=== PATIENT | male | born 1950 | race Caucasian/White ===

== ENCOUNTER 2016-11-01 14:31 | Inpatient (IN) | payer MEDICARE, OTHER ==
[~2016-11-01] VITALS: Ht 177.8 cm; Wt 104.4 kg
[2016-11-01 15:31] LABS: Albumin 3.4 g/dL (3.4-5.0); BUN/Creatinine Ratio 30.7; Calcium 8.2 mg/dL (8.5-10.1)
[2016-11-01 15:39] LABS: Bilirubin, Total 0.7 mg/dL (0.2-1.0); Total Protein 6.5 g/dL (6.4-8.2)
[2016-11-01 15:40] LABS: Basophils # (auto) 0 uL; Basophils % (auto) 0.3 % (0.0-2.0); DEFINITIVE VIEW TRANSMISSION; Eosinophils # (auto) 0.1 uL; Hematocrit 42.4 % (41.0-53.0); Hemoglobin 14.1 g/dL (13.5-17.5); Lymphocytes # (auto) 1.4 uL; Lymphocytes % (auto) 16.2 % (10.0-50.0); Mean Corpuscular Hemoglobin 33.9 pg (28.0-32.0); Mean Corpuscular Hgb Conc. 33.4 g/dL (32.0-36.0); Mean Corpuscular Volume 101.7 fL (80.0-100.0); Mean Platelet Volume 8.2 fL (7.4-10.4); Monocytes # (auto) 0.8 uL; Monocytes % (auto) 9.3 % (0.0-12.0); Neutrophils # (auto) 6.6 uL; Neutrophils % (auto) 73.2 % (37.0-80.0); Platelet Count (auto) 225 10^3/uL (140-450); Red Cell Distribution Width 13.6 % (11.6-16.0)
[2016-11-01 15:58] LABS: Potassium 2.7 mmol/L (3.5-5.1)
[2016-11-01 17:01] LABS: B-Type Natriuretic Peptide 233.55 pg/mL (0-100); Temperature: 22.7 C (20.0-25.0)
[2016-11-01] MEDS ORDERED: DEXTROSE (50%) 50ML SYRG IV PRN (17:30)
[2016-11-01] MEDS ORDERED: POTASSIUM CHL 20 Meq TABLET PO ONE (17:30)
[2016-11-01] MEDS ORDERED: POTASSIUM CHL 20MEQ/100ML 100 ML IV ONE (17:30)
[2016-11-01] MEDS ORDERED: NITROGLYCERIN 0.4 MG SL TAB SL PRN (17:30)
[2016-11-01] MEDS ORDERED: PANTOPRAZOLE SODIUM 40 MG/10 ML VIAL IV ONE (17:30)
[2016-11-01] MEDS ORDERED: MORPHINE SULF INJ 2 MG/ML SYRINGE 1ML IV PRN (17:30)
[2016-11-01 17:34] LABS: Urine RBC None Seen /hpf (0 - 3)
[2016-11-01 17:58] LABS: Urine Bilirubin Negative (Negative); Urine Blood Negative /uL (Negative); Urine Color Yellow (Yellow); Urine Glucose TRACE mg/dL (Normal); Urine Ketone Negative (Negative); Urine Nitrite Negative (Negative); Urine Urobilinogen Normal (Negative)
[2016-11-01] MEDS: RIVAROXABAN 20 MG TAB PO SCH (18:11)
[2016-11-01] MEDS: ACCU-CHEK COMFORT CURVE STRIP VI SCH (22:00)
[2016-11-01] MEDS: ATORVASTATIN 20 MG TAB PO SCH (22:39)
[2016-11-01] MEDS: AMIODARONE HCL 200 MG TAB PO SCH (22:39)
[2016-11-01] MEDS: InsuLIN REG 1unit/0.01ml Soln (100units/ml) SC SCH (22:40)
[2016-11-01] MEDS: CARVEDILOL 3.125 MG TAB PO SCH (22:40)
[2016-11-01] MEDS: INSULIN DETEMIR(LEVEMIR) 1unit/0.01ml Soln (100units/ml) SC SCH (22:41)
[2016-11-02 05:58] LABS: Basophils # (auto) 0 uL; Basophils % (auto) 0.3 % (0.0-2.0); Eosinophils # (auto) 0.1 uL; Eosinophils % (auto) 1.4 % (0.0-7.0); Hematocrit 42.1 % (41.0-53.0); Hemoglobin 14.3 g/dL (13.5-17.5); Lymphocytes # (auto) 1.5 uL; Mean Corpuscular Hemoglobin 34.1 pg (28.0-32.0); Mean Corpuscular Hgb Conc. 33.9 g/dL (32.0-36.0); Mean Corpuscular Volume 100.7 fL (80.0-100.0); Mean Platelet Volume 7.9 fL (7.4-10.4); Monocytes # (auto) 0.7 uL; Monocytes % (auto) 10.5 % (0.0-12.0); Neutrophils % (auto) 63.8 % (37.0-80.0); Platelet Count (auto) 229 10^3/uL (140-450); Red Cell Distribution Width 14.4 % (11.6-16.0); White Blood Cell 6.3 10^3/uL (4.4-10.8)
[2016-11-02 06:10] LABS: BUN/Creatinine Ratio 29.2; Calcium 8.7 mg/dL (8.5-10.1)
[2016-11-02 06:18] LABS: Potassium 2.9 mmol/L (3.5-5.1)
[2016-11-02] MEDS ORDERED: POTASSIUM CHL 20 Meq TABLET PO ONE (06:30)
[2016-11-02] MEDS: InsuLIN REG 1unit/0.01ml Soln (100units/ml) SC SCH ×4 (06:43→22:29)
[2016-11-02] MEDS: ACCU-CHEK COMFORT CURVE STRIP VI SCH ×4 (06:51→22:30)
[2016-11-02 08:00] VITALS: BP 113/66
[2016-11-02 09:00] VITALS: BP 113/66
[2016-11-02] MEDS: INSULIN DETEMIR(LEVEMIR) 1unit/0.01ml Soln (100units/ml) SC SCH ×2 (10:00→22:29)
[2016-11-02] MEDS: AMIODARONE HCL 200 MG TAB PO SCH ×2 (10:16→22:12)
[2016-11-02] MEDS: LISINOPRIL 5 MG TAB PO SCH (10:16)
[2016-11-02] MEDS: CARVEDILOL 3.125 MG TAB PO SCH ×2 (10:18→22:11)
[2016-11-02] MEDS: PANTOPRAZOLE SODIUM 40 MG/10 ML VIAL IV SCH (10:29)
[2016-11-02] MEDS: FUROSEMIDE 40 MG TAB PO SCH (10:29)
[2016-11-02] MEDS: POTASSIUM CHL 20 Meq TABLET PO SCH (10:29)
[2016-11-02 13:00] VITALS: BP 124/70
[2016-11-02] MEDS ORDERED: POTASSIUM CHLORIDE 40 MEQ, LIDOCAINE 1% (LOCAL ANESTH.) 4 ML in SODIUM CHL 0.9% 250 ML IV ONE (13:15)
[2016-11-02] MEDS ORDERED: LISI-646 PO (13:55)
[2016-11-02] MEDS ORDERED: FURO20TA3 PO (13:55)
[2016-11-02] MEDS ORDERED: FAM20T PO (13:55)
[2016-11-02] MEDS ORDERED: CYAN10006 PO (13:55)
[2016-11-02] MEDS ORDERED: RIVA20TA PO (13:55)
[2016-11-02] MEDS ORDERED: HYDR-2651 PO (13:55)
[2016-11-02] MEDS ORDERED: METO2.5T11 PO (13:55)
[2016-11-02] MEDS ORDERED: ATOR40TA52 PO (13:55)
[2016-11-02] MEDS ORDERED: FURO40TA4 PO (13:55)
[2016-11-02] MEDS ORDERED: AMIO100T3 PO (13:55)
[2016-11-02] MEDS ORDERED: GLIP-115 PO (13:55)
[2016-11-02] MEDS ORDERED: INSU100I2 SC (13:55)
[2016-11-02] MEDS ORDERED: CARV3.1213 PO (13:55)
[2016-11-02] MEDS ORDERED: LEVEMIR SC (13:55)
[2016-11-02] MEDS ORDERED: CHOL20009 PO (13:55)
[2016-11-02 16:54] VITALS: BP 108/63
[2016-11-02] MEDS: RIVAROXABAN 20 MG TAB PO SCH (18:00)
[2016-11-02] MEDS: ATORVASTATIN 20 MG TAB PO SCH (22:11)
[2016-11-02 22:34] VITALS: BP 113/88
[2016-11-03 05:03] LABS: Basophils # (auto) 0 uL; Basophils % (auto) 0.3 % (0.0-2.0); DEFINITIVE VIEW TRANSMISSION; Eosinophils # (auto) 0.1 uL; Eosinophils % (auto) 1.7 % (0.0-7.0); Hematocrit 43.9 % (41.0-53.0); Hemoglobin 14.5 g/dL (13.5-17.5); Lymphocytes % (auto) 25.8 % (10.0-50.0); Mean Corpuscular Hemoglobin 33.6 pg (28.0-32.0); Mean Corpuscular Volume 101.8 fL (80.0-100.0); Monocytes # (auto) 0.7 uL; Neutrophils # (auto) 4.8 uL; Neutrophils % (auto) 63.2 % (37.0-80.0); Platelet Count (auto) 231 10^3/uL (140-450); Red Cell Distribution Width 14.5 % (11.6-16.0); White Blood Cell 7.6 10^3/uL (4.4-10.8)
[2016-11-03 05:16] LABS: INR 1.11 (0.9-1.15); Prothrombin Time 11.4 sec (9.37-12.3)
[2016-11-03 05:26] LABS: Albumin 3.2 g/dL (3.4-5.0); BUN/Creatinine Ratio 26.3; Calcium 8.6 mg/dL (8.5-10.1); Potassium 3.3 mmol/L (3.5-5.1)
[2016-11-03 05:30] VITALS: BP 125/81
[2016-11-03 05:36] LABS: Total Protein 6.6 g/dL (6.4-8.2)
[2016-11-03] MEDS: ACCU-CHEK COMFORT CURVE STRIP VI SCH ×4 (05:40→21:52)
[2016-11-03] MEDS: InsuLIN REG 1unit/0.01ml Soln (100units/ml) SC SCH ×4 (05:40→22:02)
[2016-11-03] MEDS ORDERED: LIDOCAINE 2%HCL (LOCAL ANESTH.) INJ 20ML MDV ONE (06:36)
[2016-11-03] MEDS ORDERED: IOHEXOL 350 MG/ML 100ML IJ ONE (06:37)
[2016-11-03] MEDS ORDERED: fentaNYL CITRATE 100 MCG/2 ML VL ONE (06:52)
[2016-11-03] MEDS ORDERED: ANGIOMAX 250 MG VIAL IV ONE (06:52)
[2016-11-03] MEDS ORDERED: MIDAZOLAM HCL 1MG/1ML-2 ML VIAL ONE (06:52)
[2016-11-03] MEDS ORDERED: EPTIFIBATIDE INJ (2MG/ML) 10ML VIAL IV ONE (06:53)
[2016-11-03] MEDS ORDERED: SODIUM CHL 0.9% 50 ML ONE (06:53)
[2016-11-03] MEDS ORDERED: CLOPIDOGREL 300 MG TAB ONE (07:47)
[2016-11-03 09:24] VITALS: BP 101/73
[2016-11-03] MEDS: FUROSEMIDE 40 MG TAB PO SCH (10:00)
[2016-11-03] MEDS: AMIODARONE HCL 200 MG TAB PO SCH ×2 (11:18→21:52)
[2016-11-03] MEDS: PANTOPRAZOLE SODIUM 40 MG/10 ML VIAL IV SCH (11:18)
[2016-11-03] MEDS: CARVEDILOL 3.125 MG TAB PO SCH ×2 (11:19→21:52)
[2016-11-03] MEDS: POTASSIUM CHL 20 Meq TABLET PO SCH (11:19)
[2016-11-03] MEDS: LISINOPRIL 5 MG TAB PO SCH (11:19)
[2016-11-03] MEDS: INSULIN DETEMIR(LEVEMIR) 1unit/0.01ml Soln (100units/ml) SC SCH ×2 (11:21→22:02)
[2016-11-03 13:38] VITALS: BP 121/80
[2016-11-03 16:36] VITALS: BP 118/73
[2016-11-03] MEDS: RIVAROXABAN 20 MG TAB PO SCH (18:00)
[2016-11-03] MEDS: ATORVASTATIN 20 MG TAB PO SCH (21:52)
[2016-11-03 22:00] VITALS: BP 108/63
[2016-11-04 05:00] VITALS: BP 112/69
[2016-11-04] MEDS: InsuLIN REG 1unit/0.01ml Soln (100units/ml) SC SCH ×4 (06:32→21:21)
[2016-11-04] MEDS: ACCU-CHEK COMFORT CURVE STRIP VI SCH ×4 (06:32→21:17)
[2016-11-04 09:00] VITALS: BP 126/82
[2016-11-04] MEDS: INSULIN DETEMIR(LEVEMIR) 1unit/0.01ml Soln (100units/ml) SC SCH ×2 (10:00→21:19)
[2016-11-04] MEDS: FUROSEMIDE 40 MG TAB PO SCH (10:30)
[2016-11-04] MEDS: PANTOPRAZOLE SODIUM 40 MG/10 ML VIAL IV SCH (10:30)
[2016-11-04] MEDS: POTASSIUM CHL 20 Meq TABLET PO SCH (10:30)
[2016-11-04] MEDS: LISINOPRIL 5 MG TAB PO SCH (10:31)
[2016-11-04] MEDS: AMIODARONE HCL 200 MG TAB PO SCH ×2 (10:31→21:20)
[2016-11-04] MEDS: CARVEDILOL 3.125 MG TAB PO SCH ×2 (10:31→21:21)
[2016-11-04] MEDS: CLOPIDOGREL BISULFATE 75 MG TAB PO SCH (10:31)
[2016-11-04 13:00] VITALS: BP 125/96
[2016-11-04 17:00] VITALS: BP 120/83
[2016-11-04] MEDS: RIVAROXABAN 20 MG TAB PO SCH (17:51)
[2016-11-04 21:05] VITALS: BP 123/82
[2016-11-04] MEDS: ATORVASTATIN 20 MG TAB PO SCH (21:20)
[2016-11-05 04:49] VITALS: BP 104/63
[2016-11-05] MEDS: ACCU-CHEK COMFORT CURVE STRIP VI SCH ×2 (06:33→11:30)
[2016-11-05] MEDS: InsuLIN REG 1unit/0.01ml Soln (100units/ml) SC SCH ×2 (06:35→11:30)
[2016-11-05 09:00] VITALS: BP 130/78
[2016-11-05] MEDS: PANTOPRAZOLE SODIUM 40 MG/10 ML VIAL IV SCH (10:15)
[2016-11-05] MEDS: CARVEDILOL 3.125 MG TAB PO SCH (10:16)
[2016-11-05] MEDS: POTASSIUM CHL 20 Meq TABLET PO SCH (10:17)
[2016-11-05] MEDS: AMIODARONE HCL 200 MG TAB PO SCH (10:17)
[2016-11-05] MEDS: CLOPIDOGREL BISULFATE 75 MG TAB PO SCH (10:17)
[2016-11-05] MEDS: LISINOPRIL 5 MG TAB PO SCH (10:18)
[2016-11-05] MEDS: FUROSEMIDE 40 MG TAB PO SCH (10:19)
[2016-11-05] MEDS: INSULIN DETEMIR(LEVEMIR) 1unit/0.01ml Soln (100units/ml) SC SCH (10:29)
[2016-11-05 12:30] VITALS: BP 114/75
[2016-11-05 16:00] VITALS: BP 114/75
== END 2016-11-05 15:53 | disposition home or self-care (01) | DRG 246 ==
LOC: EDBD 14:31 → ER 14:40 → TELE 14:41 → TELE-E-ADS 11-02 08:04 → CENTRAL 11-02 13:53 → TELE-CENTR 11-02 15:30
PROVIDERS: ADMIT Internal Medicine; ATTEND Internal Medicine Cardiovascular Disease
PROC: 027034Z Dilation of Coronary Artery, One Artery with Drug-eluting Intraluminal Device, Percutaneous Approach (ICD-10-PCS; principal; 2016-11-03)
PROC: 4A023N7 Measurement of Cardiac Sampling and Pressure, Left Heart, Percutaneous Approach (ICD-10-PCS; 2016-11-03)
PROC: B2111ZZ Fluoroscopy of Multiple Coronary Arteries using Low Osmolar Contrast (ICD-10-PCS; 2016-11-03)
DX: T82.855A Stenosis of coronary artery stent, initial encounter (principal); I50.21 Acute systolic (congestive) heart failure; I21.4 Non-ST elevation (NSTEMI) myocardial infarction; D68.69 Other thrombophilia; I13.0 Hypertensive heart and chronic kidney disease with heart failure and stage 1 through stage 4 chronic kidney disease, or unspecified chronic kidney disease; I50.22 Chronic systolic (congestive) heart failure; E11.22 Type 2 diabetes mellitus with diabetic chronic kidney disease; E78.5 Hyperlipidemia, unspecified; E87.6 Hypokalemia; I25.10 Atherosclerotic heart disease of native coronary artery without angina pectoris; E11.21 Type 2 diabetes mellitus with diabetic nephropathy; I48.91 Unspecified atrial fibrillation; E11.40 Type 2 diabetes mellitus with diabetic neuropathy, unspecified; N18.2 Chronic kidney disease, stage 2 (mild); I25.5 Ischemic cardiomyopathy; I48.2 Chronic atrial fibrillation; Y83.8 Other surgical procedures as the cause of abnormal reaction of the patient, or of later complication, without mention of misadventure at the time of the procedure; Y92.89 Other specified places as the place of occurrence of the external cause; Z91.19 Patient's noncompliance with other medical treatment and regimen; Z79.899 Other long term (current) drug therapy; Z79.01 Long term (current) use of anticoagulants; I25.2 Old myocardial infarction
CPT/HCPCS: 36415; 71010; 80048; 80053; 81001; 82962; 83036; 83880; 84484; 85025; 85610; 93005; 99291; C9113; J1815; J2001; J2250; J3480

== ENCOUNTER 2020-01-02 07:44 | Day surgery (SDC) | payer MEDICARE ==
[~2020-01-02] VITALS: Ht 177.8 cm; Wt 99.8 kg
[~2020-01-02 07:44] MED LIST: AMIO100T3 PO; ATOR40TA52 PO; CAR3125T PO; CLOP75TA28 PO; DEXL60CA3 PO; DULA0.5I SC; FLUT100I IN; FURO20TA3 PO; FURO40TA4 PO; INSU100I2 SC; IPRAAER6 IN; LEVEMIR SC; MAGN400T40 PO
[2020-01-02] MEDS ORDERED: MIDAZOLAM HCL 1MG/1ML-2 ML VIAL IV ONE (09:30)
== END 2020-01-02 12:51 | disposition home or self-care (01) ==
LOC: CATH 07:44
PROVIDERS: ATTEND Internal Medicine Cardiovascular Disease
DX: I48.20 Chronic atrial fibrillation, unspecified (principal); I11.0 Hypertensive heart disease with heart failure; I50.9 Heart failure, unspecified; I48.0 Paroxysmal atrial fibrillation; I49.5 Sick sinus syndrome; I25.5 Ischemic cardiomyopathy; I25.10 Atherosclerotic heart disease of native coronary artery without angina pectoris; E11.40 Type 2 diabetes mellitus with diabetic neuropathy, unspecified; E11.21 Type 2 diabetes mellitus with diabetic nephropathy; Z95.5 Presence of coronary angioplasty implant and graft; Z79.01 Long term (current) use of anticoagulants; Z95.810 Presence of automatic (implantable) cardiac defibrillator; Z79.4 Long term (current) use of insulin; Z79.899 Other long term (current) drug therapy; Z88.8 Allergy status to other drugs, medicaments and biological substances
CPT/HCPCS: 92960; 93005; J2250; J7030; 99152

== ENCOUNTER → 2020-11-03 | Outpatient (CLI) | payer MEDICARE ==
[~2020-11-03] VITALS: Ht 30.5 cm; Wt 0.5 kg
[~2020-11-03] MED LIST changes: -DEXL60CA3 PO; +DEXL60CA4 PO; +FUROSEMIDE INJECTION 10 ML ONE; +VANCOMYCIN 1GM/250ML 250 ML IV ONE; +cefTRIAXone 1GM/50ML D5W 50 ML IV ONE; +cefTRIAXone SOD 1,000 MG VL ONE
[2020-11-03] MEDS: FUROSEMIDE INJECTION 100 MG in SODIUM CHL 0.9% 100 ML IV SCH (10:00)
[2020-11-03 10:48] LABS: Basophils # (auto) 0 10 ^3/uL (0-0.2); Eosinophils # (auto) 0 10 ^3/uL (0-0.8); Eosinophils % (auto) 0.5 % (0.0-7.0); Hemoglobin 15.5 g/dL (13.5-17.5); Mean Corpuscular Hemoglobin 36.7 pg (28.0-32.0); Neutrophils # (auto) 6.7 10 ^3/uL (1.6-8.6); Platelet Count (auto) 276 10^3/uL (140-450)
[2020-11-03 10:50] LABS: Basophils % (auto) 0.3 % (0.0-2.0); Hematocrit 45.8 % (41.0-53.0); Lymphocytes # (auto) 1.1 10 ^3/uL (0.4-5.4); Lymphocytes % (auto) 12.7 % (10.0-50.0); Mean Corpuscular Hgb Conc. 33.8 g/dL (32.0-36.0); Mean Corpuscular Volume 108.7 fL (80.0-100.0); Monocytes # (auto) 0.7 10 ^3/uL (0-1.3); Monocytes % (auto) 8.6 % (0.0-12.0); Neutrophils % (auto) 77.9 % (37.0-80.0); Nucleated Red Blood Cells % 0.3 %; Red Blood Cells 4.21 10^6/uL (4.5-5.90); Red Cell Distribution Width 14.9 % (11.8-14.3); White Blood Cell 8.5 10^3/uL (4.4-10.8)
[2020-11-03 10:51] LABS: Albumin 3.3 g/dL (3.4-5.0); Calcium 8.4 mg/dL (8.5-10.1); Potassium 4.5 mmol/L (3.5-5.1)
[2020-11-03 10:53] LABS: BUN/Creatinine Ratio 17.2; Bilirubin, Total 1.5 mg/dL (0.2-1.0); Total Protein 7.1 g/dL (6.4-8.2)
[2020-11-03 14:30] VITALS: BP 113/79
== END | disposition home or self-care (01) ==
LOC: CHF HDHVI 09:30
PROVIDERS: ATTEND Internal Medicine Cardiovascular Disease
DX: I50.23 Acute on chronic systolic (congestive) heart failure (principal); E29.1 Testicular hypofunction; E55.9 Vitamin D deficiency, unspecified; I25.10 Atherosclerotic heart disease of native coronary artery without angina pectoris; I48.91 Unspecified atrial fibrillation; E11.9 Type 2 diabetes mellitus without complications; L03.90 Cellulitis, unspecified
CPT/HCPCS: 36415; 80053; 82306; 82607; 82962; 83036; 83880; 84403; 85025; 96365; 96366; 96367; 96375; G0463; J0696; J1940; J3370; 96374

== ENCOUNTER → 2020-11-06 | Outpatient (CLI) | payer MEDICARE ==
[2020-11-06] VITALS (9 sets, daily range): BP systolic 112–133; BP diastolic 74–94
[~2020-11-06] MED LIST changes: +DOBUTamine 1000MCG/ML 250 ML IV ONE; -FUROSEMIDE INJECTION 10 ML ONE; +INSREG3 SC; +METO25TA36 PO; +POTA10TA51 PO; -VANCOMYCIN 1GM/250ML 250 ML IV ONE; -cefTRIAXone 1GM/50ML D5W 50 ML IV ONE; -cefTRIAXone SOD 1,000 MG VL ONE
[2020-11-06 12:16] LABS: Eosinophils # (auto) 0 10 ^3/uL (0-0.8); Hemoglobin 15.3 g/dL (13.5-17.5); Lymphocytes # (auto) 0.9 10 ^3/uL (0.4-5.4); Neutrophils # (auto) 6.4 10 ^3/uL (1.6-8.6); Nucleated Red Blood Cells % 0.3 %; White Blood Cell 8.1 10^3/uL (4.4-10.8)
[2020-11-06 12:18] LABS: Basophils # (auto) 0.1 10 ^3/uL (0-0.2); Basophils % (auto) 0.6 % (0.0-2.0); Eosinophils % (auto) 0.6 % (0.0-7.0); Hematocrit 45.7 % (41.0-53.0); Lymphocytes % (auto) 10.9 % (10.0-50.0); Mean Corpuscular Hemoglobin 36.6 pg (28.0-32.0); Mean Corpuscular Hgb Conc. 33.4 g/dL (32.0-36.0); Mean Corpuscular Volume 109.5 fL (80.0-100.0); Monocytes # (auto) 0.8 10 ^3/uL (0-1.3); Monocytes % (auto) 9.3 % (0.0-12.0); Neutrophils % (auto) 78.6 % (37.0-80.0); Platelet Count (auto) 261 10^3/uL (140-450); Red Blood Cells 4.17 10^6/uL (4.5-5.90); Red Cell Distribution Width 15.5 % (11.8-14.3)
[2020-11-06 12:21] LABS: Potassium 4.4 mmol/L (3.5-5.1)
== END | disposition home or self-care (01) ==
LOC: CHF HDHVI 09:36
PROVIDERS: ATTEND Internal Medicine Cardiovascular Disease
DX: I11.0 Hypertensive heart disease with heart failure (principal); I50.23 Acute on chronic systolic (congestive) heart failure; R53.83 Other fatigue; I25.10 Atherosclerotic heart disease of native coronary artery without angina pectoris; I48.91 Unspecified atrial fibrillation; E78.5 Hyperlipidemia, unspecified; E11.9 Type 2 diabetes mellitus without complications; Z79.84 Long term (current) use of oral hypoglycemic drugs; Z79.899 Other long term (current) drug therapy; Z95.5 Presence of coronary angioplasty implant and graft
CPT/HCPCS: 36415; 82565; 83880; 84132; 84520; 85025; 93306; 96365; 96366; G0463; J1250

== ENCOUNTER → 2020-11-09 | Outpatient (CLI) | payer MEDICARE ==
[2020-11-09] VITALS (7 sets, daily range): BP systolic 99–135; BP diastolic 68–93
[~2020-11-09] MED LIST changes: -DOBUTamine 1000MCG/ML 250 ML IV ONE; +FUROSEMIDE INJECTION 10 ML ONE; +FUROSEMIDE INJECTION 100 MG in SODIUM CHL 0.9% 100 ML IV ONE; +POTASSIUM CHL 10 Meq TABLET PO ONE; +POTASSIUM CHL 20 Meq TABLET PO ONE; +RIVA20TA PO; +SPIR25TA PO
[2020-11-09 10:30] LABS: Calcium 8.8 mg/dL (8.5-10.1); Potassium 4.1 mmol/L (3.5-5.1)
[2020-11-09 10:34] LABS: BUN/Creatinine Ratio 18.5
== END | disposition home or self-care (01) ==
LOC: CHF HDHVI 09:17
PROVIDERS: ATTEND Internal Medicine Cardiovascular Disease
DX: I11.0 Hypertensive heart disease with heart failure (principal); I50.23 Acute on chronic systolic (congestive) heart failure; I25.10 Atherosclerotic heart disease of native coronary artery without angina pectoris; I48.91 Unspecified atrial fibrillation; E11.9 Type 2 diabetes mellitus without complications
CPT/HCPCS: 36415; 80048; 83036; 83880; 87077; 87186; 87205; 96365; 96366; G0463; J1940

== ENCOUNTER → 2020-11-11 | Outpatient (CLI) | payer MEDICARE ==
[~2020-11-11] MED LIST changes: -FUROSEMIDE INJECTION 10 ML ONE; -FUROSEMIDE INJECTION 100 MG in SODIUM CHL 0.9% 100 ML IV ONE; -INSREG3 SC; -METO25TA36 PO; -POTA10TA51 PO; -POTASSIUM CHL 10 Meq TABLET PO ONE; -POTASSIUM CHL 20 Meq TABLET PO ONE; -RIVA20TA PO; -SPIR25TA PO
[2020-11-11 10:35] VITALS: BP 122/82
[2020-11-11 11:58] LABS: Potassium 3.9 mmol/L (3.5-5.1)
== END | disposition home or self-care (01) ==
LOC: CHF HDHVI 09:49
PROVIDERS: ATTEND Internal Medicine Cardiovascular Disease
DX: I50.23 Acute on chronic systolic (congestive) heart failure (principal)
CPT/HCPCS: 36415; 82565; 83880; 84132; 84520; G0463

== ENCOUNTER → 2020-11-13 | Outpatient (CLI) | payer MEDICARE ==
[2020-11-13] VITALS (10 sets, daily range): BP systolic 98–123; BP diastolic 61–85
[~2020-11-13] MED LIST changes: +BACITRACIN TOP OINT 1 UD PKG TOP ONE; +DOBUTamine 1000MCG/ML 250 ML IV ONE; +INSREG3 SC; +METO25TA36 PO; +POTA10TA51 PO
[2020-11-13 11:46] LABS: Potassium 4.8 mmol/L (3.5-5.1)
== END | disposition home or self-care (01) ==
LOC: CHF HDHVI 09:07
PROVIDERS: ATTEND Internal Medicine Cardiovascular Disease
DX: I11.0 Hypertensive heart disease with heart failure (principal); I50.23 Acute on chronic systolic (congestive) heart failure; R53.83 Other fatigue; I25.10 Atherosclerotic heart disease of native coronary artery without angina pectoris; I48.91 Unspecified atrial fibrillation; E11.9 Type 2 diabetes mellitus without complications
CPT/HCPCS: 36415; 82565; 83880; 84132; 84520; 96365; 96366; G0463; J1250

== ENCOUNTER → 2020-11-16 | Outpatient (CLI) | payer MEDICARE ==
[~2020-11-16] MED LIST changes: -BACITRACIN TOP OINT 1 UD PKG TOP ONE; -DOBUTamine 1000MCG/ML 250 ML IV ONE; +RIVA20TA PO; +SPIR25TA PO
[2020-11-16 09:22] VITALS: BP 116/85
[2020-11-16 09:48] VITALS: BP 110/88
[2020-11-16 11:38] LABS: Basophils # (auto) 0 10 ^3/uL (0-0.2); Basophils % (auto) 0.3 % (0.0-2.0); Eosinophils # (auto) 0 10 ^3/uL (0-0.8); Eosinophils % (auto) 0.1 % (0.0-7.0); Hemoglobin 15.3 g/dL (13.5-17.5); Mean Corpuscular Hgb Conc. 33.8 g/dL (32.0-36.0); Neutrophils # (auto) 7.5 10 ^3/uL (1.6-8.6); White Blood Cell 9.4 10^3/uL (4.4-10.8)
[2020-11-16 11:40] LABS: Hematocrit 45.2 % (41.0-53.0); Lymphocytes % (auto) 10.9 % (10.0-50.0); Mean Corpuscular Hemoglobin 36.8 pg (28.0-32.0); Monocytes # (auto) 0.9 10 ^3/uL (0-1.3); Neutrophils % (auto) 79.7 % (37.0-80.0); Nucleated Red Blood Cells % 0.9 %; Red Blood Cells 4.15 10^6/uL (4.5-5.90); Red Cell Distribution Width 15.6 % (11.8-14.3)
[2020-11-16 11:55] LABS: INR 2.58 (0.9-1.15); Partial Thromboplastin Time 35.6 sec (23.0-31.2)
[2020-11-16 12:01] LABS: Potassium 5.3 mmol/L (3.5-5.1)
[2020-11-16 12:07] LABS: BUN/Creatinine Ratio 17.1; Calcium 8.5 mg/dL (8.5-10.1)
== END | disposition home or self-care (01) ==
LOC: Rad HDHVI 09:00
PROVIDERS: ATTEND Internal Medicine Cardiovascular Disease
DX: Z01.812 Encounter for preprocedural laboratory examination (principal); I51.7 Cardiomegaly; I70.0 Atherosclerosis of aorta; I25.10 Atherosclerotic heart disease of native coronary artery without angina pectoris; I50.9 Heart failure, unspecified
CPT/HCPCS: 36415; 71046; 80048; 85025; 85610; 85730; 93005; G0463

== ENCOUNTER 2020-11-19 06:46 | Day surgery (SDC) | payer MEDICARE ==
[~2020-11-19] VITALS: Ht 177.8 cm; Wt 108.9 kg
[~2020-11-19 06:46] MED LIST changes: -CAR3125T PO; -FLUT100I IN; -RIVA20TA PO; -SPIR25TA PO
[2020-11-19] MEDS ORDERED: LIDOCAINE 2%HCL (LOCAL ANESTH.) INJ 20ML MDV ONE (07:28)
[2020-11-19] MEDS ORDERED: HEPARIN IN NS 1000Units/500mL 1,500 ML ONE (07:29)
[2020-11-19] MEDS ORDERED: IOHEXOL 350 MG/ML 100ML IJ ONE (07:29)
[2020-11-19] MEDS ORDERED: ANGIOMAX 250 MG VIAL IV ONE (09:03)
[2020-11-19] MEDS ORDERED: MIDAZOLAM HCL 2MG/2ML 2ml VIAL (1mg/ml) ONE (09:04)
[2020-11-19] MEDS ORDERED: fentaNYL CITRATE 100 MCG/2 ML VL ONE (09:04)
[2020-11-19] MEDS ORDERED: SODIUM CHL 0.9% 50 ML ONE (09:04)
[2020-11-19] MEDS ORDERED: IODIXANOL 320MG/ML 100ML BTL IV ONE (09:18)
[2020-11-19] MEDS ORDERED: NITROGLYCERIN 0.4 MG SL TAB SL PRN (10:00)
[2020-11-19] MEDS ORDERED: ONDANSETRON HCL 4 MG/2 ML VIAL IV PRN (10:00)
[2020-11-19] MEDS ORDERED: ACETAMINOPHEN 500 MG TAB PO PRN (10:00)
[2020-11-19] MEDS ORDERED: HYDROcodone-ACET 5/325MG TAB PO PRN (10:00)
[2020-12-18] MEDS ORDERED: SPIR25TA PO (09:04)
[2020-12-18] MEDS ORDERED: RIVA20TA PO (09:04)
== END 2020-11-19 12:38 | disposition home or self-care (01) ==
LOC: CATH 06:46
PROVIDERS: ATTEND Internal Medicine Cardiovascular Disease
DX: I25.10 Atherosclerotic heart disease of native coronary artery without angina pectoris (principal); I50.9 Heart failure, unspecified; Z88.6 Allergy status to analgesic agent; E78.5 Hyperlipidemia, unspecified; Z95.5 Presence of coronary angioplasty implant and graft; E11.9 Type 2 diabetes mellitus without complications; Z20.822 Contact with and (suspected) exposure to COVID-19; Z98.890 Other specified postprocedural states; Z79.899 Other long term (current) drug therapy; Z79.84 Long term (current) use of oral hypoglycemic drugs; Z68.34 Body mass index [BMI] 34.0-34.9, adult; Z80.9 Family history of malignant neoplasm, unspecified
CPT/HCPCS: 92920; 93454; C1725; C1760; C1769; C1887; C1894; J0583; J1644; J2250; J3010; J7030; Q9967; U0003; 99152; 99153

== ENCOUNTER 2020-12-23 09:47 | Inpatient (IN) | payer MEDICARE ==
[~2020-12-23] VITALS: Ht 177.8 cm; Wt 94.0 kg
[~2020-12-23 09:47] MED LIST changes: -FURO20TA3 PO; -INSREG3 SC; -MAGN400T40 PO; +RIVA20TA PO; +SPIR25TA PO; +VANCOMYCIN 1GM/250ML 250 ML IV ONE
[2020-12-23] MEDS ORDERED: VANCOMYCIN 1GM/250ML 250 ML IV ONE (10:33)
[2020-12-23] MEDS ORDERED: NITROGLYCERIN 0.4 MG SL TAB SL PRN (13:30)
[2020-12-23] MEDS ORDERED: DOBUTamine 1000MCG/ML 250 ML IV SCH (13:30)
[2020-12-23] MEDS ORDERED: MORPHINE SULFATE INJECTION 2 MG/ML SYRG IV PRN (13:30)
[2020-12-23] MEDS ORDERED: DEXTROSE (50%) 50ML SYRG IV PRN (13:30)
[2020-12-23 20:00] VITALS: BP 112/74
[2020-12-23] MEDS: DOBUTamine 1000MCG/ML 250 ML IV SCH (21:50)
[2020-12-23 22:00] VITALS: BP 112/74
[2020-12-23] MEDS: ACCU-CHEK COMFORT CURVE STRIP VI SCH (22:40)
[2020-12-23] MEDS: InsuLIN REG 1unit/0.01ml Soln (100units/ml) SC SCH (22:50)
[2020-12-24 05:00] VITALS: BP 109/64
[2020-12-24] MEDS: DOBUTamine 1000MCG/ML 250 ML IV SCH ×2 (06:29→23:55)
[2020-12-24] MEDS: ACCU-CHEK COMFORT CURVE STRIP VI SCH ×4 (06:49→21:35)
[2020-12-24] MEDS: InsuLIN REG 1unit/0.01ml Soln (100units/ml) SC SCH ×4 (06:55→22:00)
[2020-12-24] MEDS ORDERED: fentaNYL CITRATE 100 MCG/2 ML VL ONE (09:11)
[2020-12-24] MEDS ORDERED: MIDAZOLAM HCL 2MG/2ML 2ml VIAL (1mg/ml) ONE (09:11)
[2020-12-24] MEDS ORDERED: LIDOCAINE 2%HCL (LOCAL ANESTH.) INJ 20ML MDV ONE (09:12)
[2020-12-24] MEDS ORDERED: VANCOMYCIN HCL 1000 MG VL ONE (09:32)
[2020-12-24] MEDS ORDERED: diphenhdrAMINE HCL 50 MG/1 ML VL ONE (09:43)
[2020-12-24] MEDS ORDERED: IOHEXOL 350 MG/ML 100ML IJ ONE (09:52)
[2020-12-24] MEDS ORDERED: FUROSEMIDE 20 MG/2 ML VIAL ONE (10:12)
[2020-12-24] MEDS ORDERED: ceFAZolin 2 GM in D5W 5% 100 ML IV ONE (11:00)
[2020-12-24 13:00] VITALS: BP 125/71
[2020-12-24] MEDS: ceFAZolin 1GM/50ML 50 ML IV SCH ×2 (14:00→21:30)
[2020-12-24 17:06] VITALS: BP 126/82
[2020-12-24 22:00] VITALS: BP 110/68
[2020-12-25 05:19] VITALS: BP 128/70
[2020-12-25] MEDS: ceFAZolin 1GM/50ML 50 ML IV SCH ×3 (05:49→21:35)
[2020-12-25] MEDS: ACCU-CHEK COMFORT CURVE STRIP VI SCH ×4 (06:17→21:50)
[2020-12-25] MEDS: InsuLIN REG 1unit/0.01ml Soln (100units/ml) SC SCH ×4 (06:38→22:26)
[2020-12-25] MEDS: DOBUTamine 1000MCG/ML 250 ML IV SCH ×3 (07:41→19:56)
[2020-12-25 09:00] VITALS: BP 125/67
[2020-12-25 13:00] VITALS: BP 133/76
[2020-12-25 17:00] VITALS: BP 123/83
[2020-12-25 22:00] VITALS: BP 130/65
[2020-12-26] MEDS: DOBUTamine 1000MCG/ML 250 ML IV SCH ×3 (04:54→13:20)
[2020-12-26] MEDS: ceFAZolin 1GM/50ML 50 ML IV SCH ×2 (05:41→13:20)
[2020-12-26] MEDS: ACCU-CHEK COMFORT CURVE STRIP VI SCH ×2 (06:28→11:17)
[2020-12-26] MEDS: InsuLIN REG 1unit/0.01ml Soln (100units/ml) SC SCH ×2 (06:32→11:22)
[2020-12-26 08:45] VITALS: BP 116/63
[2020-12-26 13:00] VITALS: BP 142/83
[2020-12-26 13:53] VITALS: BP 142/83
== END 2020-12-26 16:40 | disposition home or self-care (01) | DRG 226 ==
LOC: CATH 09:47 → TELE 09:48 → DOU IN ADS 15:00 → EAST 12-25 01:18 → TELE-E-ADS 12-25 01:25 → TELE-WESTW 12-25 15:55
PROVIDERS: ADMIT Internal Medicine Cardiovascular Disease; ATTEND Internal Medicine Cardiovascular Disease
PROC: 0JH609Z Insertion of Cardiac Resynchronization Defibrillator Pulse Generator into Chest Subcutaneous Tissue and Fascia, Open Approach (ICD-10-PCS; principal; 2020-12-24)
PROC: 0JPT0PZ Removal of Cardiac Rhythm Related Device from Trunk Subcutaneous Tissue and Fascia, Open Approach (ICD-10-PCS; 2020-12-24)
PROC: 02HK3KZ Insertion of Defibrillator Lead into Right Ventricle, Percutaneous Approach (ICD-10-PCS; 2020-12-24)
PROC: 02HL3KZ Insertion of Defibrillator Lead into Left Ventricle, Percutaneous Approach (ICD-10-PCS; 2020-12-24)
DX: I13.0 Hypertensive heart and chronic kidney disease with heart failure and stage 1 through stage 4 chronic kidney disease, or unspecified chronic kidney disease (principal); I50.23 Acute on chronic systolic (congestive) heart failure; D68.59 Other primary thrombophilia; I25.5 Ischemic cardiomyopathy; I48.0 Paroxysmal atrial fibrillation; E11.40 Type 2 diabetes mellitus with diabetic neuropathy, unspecified; N18.30 Chronic kidney disease, stage 3 unspecified; E11.51 Type 2 diabetes mellitus with diabetic peripheral angiopathy without gangrene; E11.22 Type 2 diabetes mellitus with diabetic chronic kidney disease; I25.10 Atherosclerotic heart disease of native coronary artery without angina pectoris; I25.2 Old myocardial infarction; M19.90 Unspecified osteoarthritis, unspecified site; Z20.822 Contact with and (suspected) exposure to COVID-19; Z86.73 Personal history of transient ischemic attack (TIA), and cerebral infarction without residual deficits; Z95.810 Presence of automatic (implantable) cardiac defibrillator
CPT/HCPCS: 33249; 71045; 82962; 87081; 93005; 99152; 99153; C1769; G0378; J0690; J1815; J2250; J7060

== ENCOUNTER 2022-07-14 09:56 | Day surgery (SDC) | payer MEDICARE ==
[~2022-07-14] VITALS: Ht 177.8 cm; Wt 105.2 kg
[~2022-07-14 09:56] MED LIST changes: +CARV12.544 PO; +MAGN241.4 PO; -VANCOMYCIN 1GM/250ML 250 ML IV ONE
[2022-07-14] MEDS ORDERED: ANGIOMAX 250 MG VIAL IV ONE (11:03)
[2022-07-14] MEDS ORDERED: PHENYLEPHRINE HCL 10 MG/ML VL ONE (11:03)
[2022-07-14] MEDS ORDERED: GLYCOPYRROLATE 0.2 MG/ML 1ML VIAL ONE (11:03)
[2022-07-14] MEDS ORDERED: ATROPINE SULF 1 MG/10ml SYR ONE (11:03)
[2022-07-14] MEDS ORDERED: SODIUM CHL 0.9% 0 ML ONE (11:04)
[2022-07-14] MEDS ORDERED: EPINEPHrine HCL 1 MG/10 ML SYRG ONE (11:04)
== END 2022-07-14 14:00 | disposition home or self-care (01) ==
LOC: CATH 09:56
PROVIDERS: ATTEND Internal Medicine Cardiovascular Disease
DX: I65.22 Occlusion and stenosis of left carotid artery (principal); I11.0 Hypertensive heart disease with heart failure; I50.9 Heart failure, unspecified; I25.5 Ischemic cardiomyopathy; E11.21 Type 2 diabetes mellitus with diabetic nephropathy; E11.319 Type 2 diabetes mellitus with unspecified diabetic retinopathy without macular edema; E11.51 Type 2 diabetes mellitus with diabetic peripheral angiopathy without gangrene; I25.10 Atherosclerotic heart disease of native coronary artery without angina pectoris; Z82.49 Family history of ischemic heart disease and other diseases of the circulatory system; Z95.810 Presence of automatic (implantable) cardiac defibrillator; Z80.0 Family history of malignant neoplasm of digestive organs; Z82.61 Family history of arthritis; Z20.822 Contact with and (suspected) exposure to COVID-19
CPT/HCPCS: 36227; C1760; C1769; C1894; J7030; Q9967; U0003; 99152

== ENCOUNTER → 2022-08-01 | Outpatient (CLI) | payer MEDICARE | END | disposition home or self-care (01) | LOC: Rad HDHVI 14:27 | PROVIDERS: ATTEND Internal Medicine Cardiovascular Disease | DX: I08.3 Combined rheumatic disorders of mitral, aortic and tricuspid valves (principal); R06.02 Shortness of breath; I10 Essential (primary) hypertension | CPT/HCPCS: 93306 ==